=== PATIENT | male | born 1995 | race Caucasian/White ===

== ENCOUNTER 2017-12-10 18:48 | Emergency (ER) | payer SELFPAY ==
[~2017-12-10] VITALS: Ht 182.9 cm; Wt 103.9 kg
[2017-12-10 19:31] VITALS: Ht 182.9 cm; Wt 103.9 kg
[2017-12-10 23:30] VITALS: BP 109/51
== END 2017-12-10 23:44 | disposition home or self-care (01) ==
LOC: ED 18:48
DX: K61.0 Anal abscess (principal)
CPT/HCPCS: J2001

== ENCOUNTER 2017-12-12 12:22 | Emergency (ER) | payer SELFPAY ==
[~2017-12-12] VITALS: Ht 172.7 cm; Wt 106.9 kg
[2017-12-12 12:55] VITALS: BP 130/77
== END 2017-12-12 12:55 | disposition home or self-care (01) ==
LOC: ED 12:22
DX: Z48.02 Encounter for removal of sutures (principal)

== ENCOUNTER 2019-05-14 18:54 | Emergency (ER) | payer SELFPAY | END 2019-05-14 20:46 | disposition left against medical advice (07) | LOC: ED 18:54 | DX: Z53.21 Procedure and treatment not carried out due to patient leaving prior to being seen by health care provider (principal) ==

== ENCOUNTER 2020-02-22 21:00 | Emergency (ER) | payer OTHER ==
[~2020-02-22] VITALS: Ht 172.7 cm; Wt 108.9 kg
[2020-02-22 21:09] VITALS: Ht 172.7 cm; Wt 108.9 kg
[2020-02-22 22:42] VITALS: BP 120/72
== END 2020-02-22 22:42 | disposition home or self-care (01) ==
LOC: ED 21:00
DX: L03.116 Cellulitis of left lower limb (principal); S81.801A Unspecified open wound, right lower leg, initial encounter; X58.XXXA Exposure to other specified factors, initial encounter; Y93.89 Activity, other specified; Y92.89 Other specified places as the place of occurrence of the external cause; Y99.8 Other external cause status
CPT/HCPCS: 90715; Q0092